=== PATIENT | female | born 1935 | race Caucasian/White ===

== ENCOUNTER 2018-10-04 18:19 | Inpatient (IN) | payer MEDICARE, OTHER | END 2018-10-09 11:15 | disposition home or self-care (01) | LOC: ER 18:19 → ED HOLD 19:30 → SUR 3N 20:40 | DX: K92.1 Melena (principal); D62 Acute posthemorrhagic anemia; N17.9 Acute kidney failure, unspecified; I95.9 Hypotension, unspecified ==